=== PATIENT | female | born 1960 | race Caucasian/White ===

== ENCOUNTER 2017-06-11 21:53 | Inpatient (IN) | payer OTHER ==
[~2017-06-11] VITALS: Ht 152.4 cm; Wt 59.1 kg
[~2017-06-11 21:53] MED LIST: ATEN100T8 PO; CITA40TA12 PO; EYE OPB; LORA-741 PO; META1TAB22 PO; OXYC1TAB3 PO; ZINC1TAB PO
[2017-06-11] MEDS ORDERED: MoRPHine SULFATE 4 MG/ML 1 ML CARP\\VIAL IV STA (22:31)
[2017-06-11] MEDS ORDERED: ONDANSETRON INJ 2 MG/ML 2 ML VIAL IV STA (22:31)
[2017-06-11] MEDS ORDERED: DEXAMETHASONE **PF** INJ 10 MG/ML VIAL IV ONE (22:45)
[2017-06-11 22:52] LABS: BASO % 0.6 %; BASO ABS # 0.06 K/uL (0-0.2); EOS % 1.8 %; EOS ABS # 0.19 K/uL (0-0.5); HEMATOCRIT 37.4 % (37-47); HEMOGLOBIN 13.8 g/dL (12.0-16.0); IG# 0.03 K/uL (0.00-0.02); LYMPH % 36.6 %; LYMPH ABS # 3.86 K/uL (1.2-3.4); MEAN CELL VOLUME 89.3 fL (80-100); MEAN CORPUSCULAR HEMOGLOBIN 32.9 pg (25-34); MEAN CORPUSCULAR HGB CONC 36.9 g/dl (32-36); MEAN PLATELET VOLUME 9.2 fL (7.4-10.4); MONO % 10.5 %; MONO ABS # 1.11 K/uL (0.11-0.59); NEUT % 50.2 %; PLATELET COUNT 364 K/uL (130-400); WHITE BLOOD COUNT 10.55 K/uL (4.8-10.8)
[2017-06-11 23:09] LABS: CALCIUM 9.4 mg/dl (8.5-10.1); CREATININE 0.51 mg/dl (0.60-1.20); POTASSIUM 2.7 mmol/L (3.5-5.1)
[2017-06-11] MEDS ORDERED: KETOROLAC TROMETHAMINE 30 MG/ML VIAL IV STA (23:20)
[2017-06-11] MEDS ORDERED: LISI-461 PO (23:30)
[2017-06-11] MEDS ORDERED: TRAM-10 PO (23:31)
[2017-06-11] MEDS ORDERED: ATOR-22 PO (23:33)
[2017-06-11] MEDS ORDERED: AMLO-110 PO (23:33)
[2017-06-11] MEDS ORDERED: CYCL10TA6 PO (23:36)
[2017-06-11] MEDS ORDERED: PRED10TA PO (23:36)
[2017-06-11] MEDS ORDERED: GABA-113 PO (23:39)
[2017-06-11] MEDS ORDERED: POTASSIUM CHLORIDE 10 MEQ TABCR PO STA (23:40)
[2017-06-12] VITALS (7 sets, daily range): BP systolic 118–146; BP diastolic 60–80; PULSE 64–72; TEMP 36.4–36.9; O2SAT 97–100; Ht 152.4 cm; Wt 59.1 kg
--- NOTE | 2017-06-12 00:34 | EMERGENCY ROOM VISIT NOTE ---
History First contact with patient: 22:15 Chief Complaint: PAIN (GENERALIZED) Stated Complaint: SCIATICA PAIN History of Present Illness The patient is a 56 year old female who presents to the Emergency Room with complaints of severe low back pain that radiates down her left leg the past month described as aching, ranging in severity currently 9 out of 10 worse with movement and better with rest. Patient has seen multiple other providers. Patient saw her family care doctor, [place] and pain management. She had a MRI done the other day that showed degenerative disc disease. She was recommended to do physical therapy but cannot tolerate the pain. Her insurance will not approve pain management injections until she does physical therapy. Patient denies fever, chills, loss of bowel or bladder control, saddle anesthesia, chest pain, dyspnea, IV drug abuse, abdominal pain. She brought in the MRI results with her. Review of Systems An 10 system review of systems was completed with positives and pertinent negatives listed in the HPI. Past Medical/Surgical History Medical Problems: (1) Back pain Anxiety, hyperlipidemia, hypertension, neck pain Social History Smoking Status: Never Smoker Smokeless Tobacco Use: No Drug Use: none Occupation Status: employed Current/Historical Medications Scheduled Amlodipine (Norvasc), 5 MG PO QAM Atenolol/Chlorthalidone (Tenoretic 100 Mg/25 Mg), 1 TAB PO QAM Atorvastatin (Lipitor), 20 MG PO HS Citalopram Hydrobromide (Celexa), 40 MG PO QAM Cyclobenzaprine Hcl (Flexeril), 5 MG PO HS Gabapentin (Neurontin), 300 MG PO HS Lisinopril (Zestril), 10 MG PO DAILY Lorazepam (Ativan), 0.25 MG PO HS Metaxalone (Skelaxin), 800 MG PO BID Prednisone (Prednisone), 0 PO UD Tramadol (Ultram), 50 MG PO Q6 Physical Exam Vital Signs Date Time Temp Pulse Resp B/P (MAP) Pulse Ox O2 Delivery O2 Flow Rate FiO2 06/11/17 22:55 65 16 115/51 97 Room Air 06/11/17 21:56 36.7 70 20 128/69 99 Room Air Physical Exam VITALS: Vitals are noted on the nurse's note and reviewed by myself. Vital signs stable. GENERAL: Pleasant female who appears in pain, in no acute distress, nondiaphoretic, well-developed well-nourished. SKIN: Capillary reflex less than 2 seconds. HEENT: Normocephalic. PERRLA. EOMI. Nares patent. Mucous membranes moist. Neck is supple without nuchal rigidity. HEART: Regular rate and rhythm LUNGS: Clear to auscultation bilaterally without wheezes, rales or rhonchi. No retractions or accessory muscle use. ABDOMEN: Positive bowel sounds x 4. Normal tympanic percussion. Soft, nontender, without masses or organomegaly. Campos sign negative. No guarding or rebound tenderness. MUSCULOSKELETAL: No gross musculoskeletal defects. No pedal edema. No calf tenderness. No thoracic or lumbar tenderness on exam. Positive straight leg raise on the left. Patient can walk on toes but has severe pain. She can plantarflex and dorsiflex. NEURO: Patient was alert and oriented to person place and time. Normal sensation to light and sharp touch. Deep tendon reflexes 2+ patella bilaterally. No focal neurological deficits. Medical Decision & Procedures Laboratory Results 06/11/17 22:40 Red Blood Count 4.19, Mean Corpuscular Volume 89.3, Mean Corpuscular Hemoglobin 32.9, Mean Corpuscular Hemoglobin Concent 36.9, Mean Platelet Volume 9.2, Neutrophils (%) (Auto) 50.2, Lymphocytes (%) (Auto) 36.6, Monocytes (%) (Auto) 10.5, Eosinophils (%) (Auto) 1.8, Basophils (%) (Auto) 0.6, Neutrophils # (Auto ) 5.30, Lymphocytes # (Auto) 3.86, Monocytes # (Auto) 1.11, Eosinophils # (Auto ) 0.19, Basophils # (Auto) 0.06 06/11/17 22:40 Test 06/11/17 22:40 White Blood Count 10.55 K/uL (4.8-10.8) Red Blood Count 4.19 M/uL (4.2-5.4) Hemoglobin 13.8 g/dL (12.0-16.0) Hematocrit 37.4 % (37-47) Mean Corpuscular Volume 89.3 fL (80-100) Mean Corpuscular Hemoglobin 32.9 pg (25-34) Mean Corpuscular Hemoglobin Concent 36.9 g/dl (32-36) Platelet Count 364 K/uL (130-400) Mean Platelet Volume 9.2 fL (7.4-10.4) Neutrophils (%) (Auto) 50.2 % Lymphocytes (%) (Auto) 36.6 % Monocytes (%) (Auto) 10.5 % Eosinophils (%) (Auto) 1.8 % Basophils (%) (Auto) 0.6 % Neutrophils # (Auto) 5.30 K/uL (1.4-6.5) Lymphocytes # (Auto) 3.86 K/uL (1.2-3.4) Monocytes # (Auto) 1.11 K/uL (0.11-0.59) Eosinophils # (Auto) 0.19 K/uL (0-0.5) Basophils # (Auto) 0.06 K/uL (0-0.2) RDW Standard Deviation 42.0 fL (36.4-46.3) RDW Coefficient of Variation 13.0 % (11.5-14.5) Immature Granulocyte % (Auto) 0.3 % Immature Granulocyte # (Auto) 0.03 K/uL (0.00-0.02) Anion Gap 14.0 mmol/L (3-11) Est Creatinine Clear Calc Drug Dose 99.0 ml/min Estimated GFR () 124.6 Estimated GFR (Non- 107.5 BUN/Creatinine Ratio 17.8 (10-20) Calcium Level 9.4 mg/dl (8.5-10.1) Magnesium Level 1.9 mg/dl (1.8-2.4) Medications Administered Medications (Trade) Dose Ordered Sig/Nirav Route Start Time Stop Time Status Last Admin Dose Admin Morphine Sulfate (MoRPHine SULFATE INJ) 4 mg NOW STAT IV 06/11/17 22:31 06/11/17 22:32 DC 06/11/17 22:40 4 MG Dexamethasone Sodium Phosphate (Dexamethasone Inj Pf) 10 mg NOW ONCE IV 06/11/17 22:45 06/11/17 22:46 DC 06/11/17 22:39 10 MG Ondansetron HCl (Zofran Inj) 4 mg NOW STAT IV 06/11/17 22:31 06/11/17 22:32 DC 06/11/17 22:39 4 MG Ketorolac Tromethamine (Toradol Inj) 30 mg NOW STAT IV 06/11/17 23:20 2/11/18 23:21 DC 06/11/17 23:28 30 MG Potassium Chloride (Klor-Con M10) 40 meq NOW STAT PO 06/11/17 23:40 06/11/17 23:42 DC 06/11/17 23:55 40 MEQ ED Course Prior records/ancillary studies reviewed. Triage Nursing notes reviewed. Additional history obtained from family. The patient's history was concerning for back pain. Differential diagnosis: Etiologies such as musculoskeletal, disc herniation, fracture, aortic disease, metastatic disease, cord compression, discitis, infection, renal colic, gastrointestinal, acute exacerbation of chronic back pain, sciatica, cauda equina, as well as others were entertained. Physical findings: As above. No focal neurologic findings noted. ER treatment provided: Morphine, Decadron, Toradol, Zofran On reassessment the patient felt better. Diagnostics interpreted by me: The labs revealed hyponatremia and hypokalemia. Patient was given potassium Imaging studies: MRI was reviewed that the patient brought in and prior notes in the [email or web address] system were reviewed Consultation: A consultation was placed with [facility]. The case was discussed and diagnostics were reviewed. She will evaluate the patient for possible admission. This appears to be consistent with intractable back pain with low potassium and hyponatremia. Patient was still in severe amount of pain. She will be evaluated by medicine for possible admission. She was given potassium and multiple rounds of pain meds. She had no deficits on exam. She had an MRI done a few days ago.. The patient's physical examination and detailed history did not reveal any red flags for back pain such as those listed in the differential diagnosis. Therefore advanced diagnostics and consultations were felt to be unwarranted. By the evaluation outlined above emergent etiologies such as fracture, aortic disease, metastatic disease, infection, renal colic, gastrointestinal, cord compression, cauda equina, as well as others were deemed relatively unlikely. The pt informed about the findings as listed above. All questions were answered and pleased with the treatment. Case reviewed with my attending Medical Decision As above Medication Reconcilliation Current Medication List: was personally reviewed by me Blood Pressure Screening Patient's blood pressure: Normal blood pressure Impression Primary Impression: Sciatica Additional Impressions: Hypokalemia Hyponatremia Departure Information Dispostion Being Evaluated By Hospitalist Condition GOOD Referrals Tana Tovar (PCP) Patient Instructions [facility] Problem Qualifiers Primary Impression: Sciatica Laterality: left Qualified Codes: M54.32 - Sciatica, left side
[2017-06-12] MEDS ORDERED: ACETAMINOPHEN 325 MG TAB PO PRN (01:30)
[2017-06-12] MEDS ORDERED: POLYETHYLENE (MIRALAX) 17 GM PACK PO PRN (01:30)
[2017-06-12] MEDS ORDERED: ONDANSETRON INJ 2 MG/ML 2 ML VIAL IV PRN (01:30)
[2017-06-12] MEDS ORDERED: DIAZEPAM 2MG TAB PO ONE (01:32)
--- NOTE | 2017-06-12 01:41 | History and Physical ---
History & Physical Date & Time of Service: Jun 12, 2017 at 01:26 Chief Complaint: Back Pain Primary Care Physician: Tana Tovar History of Present Illness Source: patient, clinic records, hospital records 56 yo F with sciatica pain for one month presents to the ER with worsening of her pain. She reports seeing her PCP who sent her to PT, but the patient was unable to go because the pain was too bad. She has tried Flexeril, Skelaxin, Percocet and Tramadol with varying degrees of success but is still in pain. It is causing her to lose time away from work. She reports some pain in her piriformis area without any lower back pain. She has had some intermittent numbness in her lower L foot which is not present currently. She denies any B symptoms, such as weight loss, night sweats or other issues. She can lay flat but has to put a pillow under her legs for comfort. She denies any bowel or bladder loss of control. She has some difficulty ambulating but is able to stand and perform some range of motion testing such as touching her toes. She denies any new medications except for a prednisone taper which she has completed. She was referred to Pain Management as an outpatient and was told prior to that she would not be approved for injections. She has not tried any NSAIDs for this pain or discomfort. Past Medical/Surgical History Medical Problems: (1) Cervical stenosis of spinal canal Status: Chronic Surgical Problems: (1) H/O cervical spine surgery Status: Chronic (2) H/O tubal ligation Status: Chronic Social History Problems: (1) Smoker Status: Chronic Family History FH: CAD (coronary artery disease) FH: HTN (hypertension) FH: breast cancer Social History Smoking Status: Current Every Day Smoker Smokeless Tobacco Use: No Alcohol Use: socially Drug Use: none Occupational Status: employed Immunizations History of Influenza Vaccine: No History of Tetanus Vaccine?: No History of Pneumococcal: No History of Hepatitis B Vaccine: No Multi-Drug Resistant Organisms History of MDRO: No Allergies Coded Allergies: No Known Allergies (Unverified , 06/11/17) Home Medications Scheduled Amlodipine (Norvasc), 5 MG PO QAM Atenolol/Chlorthalidone (Tenoretic 100 Mg/25 Mg), 1 TAB PO QAM Atorvastatin (Lipitor), 20 MG PO HS Citalopram Hydrobromide (Celexa), 40 MG PO QAM Cyclobenzaprine Hcl (Flexeril), 5 MG PO HS Gabapentin (Neurontin), 300 MG PO HS Lisinopril (Zestril), 10 MG PO DAILY Lorazepam (Ativan), 0.25 MG PO HS Metaxalone (Skelaxin), 800 MG PO BID Prednisone (Prednisone), 0 PO UD Tramadol (Ultram), 50 MG PO Q6 Review of Systems At least ten systems were reviewed and negative except as indicated in HPI above. Physical Exam Vital Signs Date Time Temp Pulse Resp B/P (MAP) Pulse Ox O2 Delivery O2 Flow Rate FiO2 06/12/17 01:23 36.6 72 16 145/78 (100) 97 Room Air 06/12/17 00:52 70 18 97 Room Air 06/11/17 22:55 65 16 115/51 97 Room Air 06/11/17 21:56 36.7 70 20 128/69 99 Room Air General Appearance: WD/WN, + mild distress Head: normocephalic, atraumatic Eyes: PERRL, sclerae normal ENT: hearing grossly normal, pharynx normal Neck: trachea midline Respiratory/Chest: lungs clear, normal breath sounds, no respiratory distress, no accessory muscle use Cardiovascular: regular rate, rhythm, no edema, no gallop, no JVD, no murmur, normal peripheral pulses Back: normal inspection, no muscle spasm, + pertinent finding (restricted rotation of L spine to the left, ,otherwise normal ROM L-spine. No TTP of paraspinal or piriformis regions on L) Extremities/Musculoskelatal: normal inspection, normal range of motion Neurologic/Psych: content architect II-XII nml as tested, alert, normal mood/affect, normal reflexes, oriented x 3, + motor weakness (weakness with flexion/extension of knee, can perform toe raise without issue), + pertinent finding (neg SLR bilat) Skin: normal color, warm/dry Diagnostics Laboratory Results 06/11/17 22:40 Red Blood Count 4.19, Mean Corpuscular Volume 89.3, Mean Corpuscular Hemoglobin 32.9, Mean Corpuscular Hemoglobin Concent 36.9, Mean Platelet Volume 9.2, Neutrophils (%) (Auto) 50.2, Lymphocytes (%) (Auto) 36.6, Monocytes (%) (Auto) 10.5, Eosinophils (%) (Auto) 1.8, Basophils (%) (Auto) 0.6, Neutrophils # (Auto ) 5.30, Lymphocytes # (Auto) 3.86, Monocytes # (Auto) 1.11, Eosinophils # (Auto ) 0.19, Basophils # (Auto) 0.06 06/11/17 22:40 Test 06/11/17 22:40 06/12/17 01:18 White Blood Count 10.55 K/uL (4.8-10.8) Red Blood Count 4.19 M/uL (4.2-5.4) Hemoglobin 13.8 g/dL (12.0-16.0) Hematocrit 37.4 % (37-47) Mean Corpuscular Volume 89.3 fL (80-100) Mean Corpuscular Hemoglobin 32.9 pg (25-34) Mean Corpuscular Hemoglobin Concent 36.9 g/dl (32-36) Platelet Count 364 K/uL (130-400) Mean Platelet Volume 9.2 fL (7.4-10.4) Neutrophils (%) (Auto) 50.2 % Lymphocytes (%) (Auto) 36.6 % Monocytes (%) (Auto) 10.5 % Eosinophils (%) (Auto) 1.8 % Basophils (%) (Auto) 0.6 % Neutrophils # (Auto) 5.30 K/uL (1.4-6.5) Lymphocytes # (Auto) 3.86 K/uL (1.2-3.4) Monocytes # (Auto) 1.11 K/uL (0.11-0.59) Eosinophils # (Auto) 0.19 K/uL (0-0.5) Basophils # (Auto) 0.06 K/uL (0-0.2) RDW Standard Deviation 42.0 fL (36.4-46.3) RDW Coefficient of Variation 13.0 % (11.5-14.5) Immature Granulocyte % (Auto) 0.3 % Immature Granulocyte # (Auto) 0.03 K/uL (0.00-0.02) Anion Gap 14.0 mmol/L (3-11) Est Creatinine Clear Calc Drug Dose 99.0 ml/min Estimated GFR () 124.6 Estimated GFR (Non- 107.5 BUN/Creatinine Ratio 17.8 (10-20) Calcium Level 9.4 mg/dl (8.5-10.1) Magnesium Level 1.9 mg/dl (1.8-2.4) Results Past 24 Hours Test 06/11/17 22:40 06/12/17 01:18 Range/Units White Blood Count 10.55 4.8-10.8 K/uL Red Blood Count 4.19 4.2-5.4 M/uL Hemoglobin 13.8 12.0-16.0 g/dL Hematocrit 37.4 37-47 % Mean Corpuscular Volume 89.3 80-100 fL Mean Corpuscular Hemoglobin 32.9 25-34 pg Mean Corpuscular Hemoglobin Concent 36.9 32-36 g/dl Platelet Count 364 130-400 K/uL Mean Platelet Volume 9.2 7.4-10.4 fL Neutrophils (%) (Auto) 50.2 % Lymphocytes (%) (Auto) 36.6 % Monocytes (%) (Auto) 10.5 % Eosinophils (%) (Auto) 1.8 % Basophils (%) (Auto) 0.6 % Neutrophils # (Auto) 5.30 1.4-6.5 K/uL Lymphocytes # (Auto) 3.86 1.2-3.4 K/uL Monocytes # (Auto) 1.11 0.11-0.59 K/uL Eosinophils # (Auto) 0.19 0-0.5 K/uL Basophils # (Auto) 0.06 0-0.2 K/uL RDW Standard Deviation 42.0 36.4-46.3 fL RDW Coefficient of Variation 13.0 11.5-14.5 % Immature Granulocyte % (Auto) 0.3 % Immature Granulocyte # (Auto) 0.03 0.00-0.02 K/uL Sodium Level 128 136-145 mmol/L Potassium Level 2.7 3.5-5.1 mmol/L Chloride Level 91 98-107 mmol/L Carbon Dioxide Level 23 21-32 mmol/L Anion Gap 14.0 3-11 mmol/L Blood Urea Nitrogen 9 7-18 mg/dl Creatinine 0.51 0.60-1.20 mg/dl Est Creatinine Clear Calc Drug Dose 99.0 ml/min Estimated GFR () 124.6 Estimated GFR (Non- 107.5 BUN/Creatinine Ratio 17.8 10-20 Random Glucose 88 70-99 mg/dl Calcium Level 9.4 8.5-10.1 mg/dl Magnesium Level 1.9 1.8-2.4 mg/dl Impression Assessment and Plan 56 yo F with one month acute lower back pain with worsening in the last couple of days. 1. Sciatica-MRI this week reveals degenerative changes in L spine. Starting Ibuprofen 800mg PO TID with Valium 2mg PO TID to help with muscle relaxation and inflammation. Consulted Pain Management for assistance with long-term plan. PT/OT ordered. May need Case Management assistance with ins coverage prior to discharge. 2. Hyponatremia-hold diuretics at this time. Check serum and urine Osm. Tolerating PO and no vomiting or diarrhea. Give IVF and recheck frequently. 3. Hypokalemia-replace PO and hold diuretics at this time. 4. Smoking-Nicoderm DVT proph-Lovenox Full Code Dispo-to floor DO [facility]ist VTE Prophylaxis VTE Risk Assessment Done? Y/N: Yes Risk Level: Moderate Given or contraindicated: Enoxaparin (Lovenox)SQ
[2017-06-12] MEDS: NICOTINE 14 MG/24 HR TDSY TD SCH ×2 (01:45→08:59)
[2017-06-12] MEDS: SODIUM CHLORIDE 0.9% 1000ML 1,000 ML IV SCH ×2 (02:09→12:16)
[2017-06-12] MEDS: POTASSIUM CHLORIDE 20 MEQ TABCR PO SCH ×2 (02:09→08:57)
[2017-06-12] MEDS: TRAMADOL HCL 50 MG TAB PO SCH ×5 (04:00→21:44)
[2017-06-12 04:43] LABS: INR 0.9 (0.9-1.1)
[2017-06-12 04:55] LABS: CALCIUM 9.1 mg/dl (8.5-10.1); CREATININE 0.66 mg/dl (0.60-1.20); POTASSIUM 3.5 mmol/L (3.5-5.1)
[2017-06-12] MEDS ORDERED: TRAMADOL HCL 50 MG TAB PO SCH (06:00)
[2017-06-12] MEDS ORDERED: MoRPHine SULFATE 2 MG/ML CARP IV PRN (06:30)
[2017-06-12] MEDS: CITALOPRAM 40 MG TAB PO SCH (08:56)
[2017-06-12] MEDS: AMLODIPINE BESYLATE 5 MG TAB PO SCH (08:56)
[2017-06-12] MEDS: LISINOPRIL 10 MG TAB PO SCH (08:56)
[2017-06-12] MEDS: ENOXAPARIN 40 MG/0.4 ML SYR SQ SCH (08:57)
[2017-06-12] MEDS ORDERED: DIAZEPAM 2MG TAB PO SCH (09:00)
[2017-06-12] MEDS ORDERED: IBUPROFEN 800 MG TAB PO SCH (09:00)
[2017-06-12] MEDS ORDERED: CHLORTHALIDONE 25 MG TAB PO SCH (09:00)
--- NOTE | 2017-06-12 09:32 | Pain Management Consultation ---
Pain Management Consultation Date of Consultation Jun 12, 2017. Reason for Consultation Lumbar radiculopathy History This is a 56-year-old white female that has been seen at the [facility] for lumbar radiculopathy that has been ongoing for several months without any known injury. She describes a deep aching and spasming sensation along the left lumbosacral region that radiates down the left leg in an S1 distribution. Patient describes approximately 50% back pain and 50% radicular pain. Pain is aggravated with walking and weight bearing. She reports associated sleep disturbances. Pain is rated 7/10 currently. Pearl has spoken with [facility] in [place] for a possible injection. Due to insurance purposes before the injection, she was placed on a prednisone taper and ordered physical therapy. She states that the prednisone taper helped for 2 days. Physical therapy was supposed to start on Monday but her pain was worsened she was unable to go. Currently she is taking Tramadol, Morphine IV, and Valium. She feels like the tramadol is providing some relief. There is some left foot numbness. No bowel/bladder incontinence, foot drop, saddle anesthesia, leg weakness, or falls. Case discussed with Dr. Tana Ordonez Past Medical/Surgical History (1) H/O tubal ligation (2) H/O cervical spine surgery (3) Hypokalemia (4) Hyponatremia (5) Sciatica (6) Back pain Family History FH: CAD (coronary artery disease) FH: HTN (hypertension) FH: breast cancer Social / Work History Smokeless Tobacco Use: No Alcohol Use: socially Drug Use: none Marital Status: Housing Status: lives with family Occupation: employed Allergies Coded Allergies: No Known Allergies (Unverified , 06/11/17) Medications Current Inpatient Medications Medications (Trade) Dose Ordered Sig/Nirav Route Start Time Stop Time Status Last Admin Dose Admin Enoxaparin Sodium (Lovenox Inj) 40 mg DAILY SQ 06/12/17 09:00 07/12/17 08:59 Acetaminophen (Tylenol Tab) 650 mg Q4H PRN PO 06/12/17 01:30 07/12/17 01:29 06/12/17 02:18 650 MG Polyethylene (Miralax Powder Packet) 17 gm DAILY PRN PO 06/12/17 01:30 07/12/17 01:29 Ondansetron HCl (Zofran Inj) 4 mg Q6H PRN IV 06/12/17 01:30 07/12/17 01:29 Sodium Chloride 1,000 ml @ 100 mls/hr Q10H IV 06/12/17 02:00 06/12/17 21:59 06/12/17 02:09 100 MLS/HR Amlodipine Besylate (Norvasc Tab) 5 mg QAM PO 06/12/17 09:00 07/12/17 08:59 Atorvastatin Calcium (Lipitor Tab) 20 mg HS PO 06/12/17 21:00 07/12/17 20:59 Citalopram Hydrobromide (celeXA TAB) 40 mg QAM PO 06/12/17 09:00 07/12/17 08:59 Lisinopril (Zestril Tab) 10 mg DAILY PO 06/12/17 09:00 07/12/17 08:59 Lorazepam (Ativan Tab) 0.25 mg HS PO 06/12/17 21:00 07/12/17 20:59 Diazepam (Valium Tab) 2 mg TID PO 06/12/17 09:00 07/12/17 08:59 Ibuprofen (Motrin Tab) 800 mg TID PO 06/12/17 09:00 07/12/17 08:59 Nicotine (Nicoderm Cq 14MG Patch) 1 patch QAM TD 06/12/17 01:45 07/12/17 01:44 Miscellaneous (Remove Nicoderm Patch) 1 ea HS N/A 06/12/17 21:00 07/12/17 20:59 Atenolol (Tenormin Tab) 100 mg QAM PO 06/12/17 09:00 07/12/17 08:59 Tramadol HCl (Ultram Tab) 50 mg Q6H PO 06/12/17 04:00 07/12/17 03:59 06/12/17 04:41 50 MG Morphine Sulfate (MoRPHine SULFATE INJ) 2 mg Q4H PRN IV 06/12/17 06:30 06/26/17 06:29 Review of Systems Denies any constitutional, cardiac, pulmonary, neurological, GI, , extremity, endocrine, neuro, ENT, dermatological, or musculoskeletal complaints other than stated in HPI Physical Exam Height & Weight: Height 5 feet, 0.00 inches. Weight 59.090 (Kilograms) 130 (Pounds) Last Vital Signs Documentation Date Time Temp Pulse Resp B/P (MAP) Pulse Ox O2 Delivery O2 Flow Rate FiO2 06/12/17 08:54 100 Room Air 06/12/17 08:00 36.4 68 14 146/80 (102) Exam: GENERAL: Mrs. Bashir is a 56 y/o white female that appears her stated age. Speech and cognition is intact. Mood and affect is appropriate. Sitting quietly in the exam room, no acute distress. HEAD: Normocephalic; atraumatic. EYES: Pupils are round, equal, and reactive to light; EOM intact. CHEST: Regular chest respiration and excursion. EXTREMITIES: There is 5/5 strength of the bilateral lower extremities. Positive straight leg raise on the left, negative on the right. There are paresthesias along the left leg in an S1 distribution. No tenderness of the greater trochanteric bursa. BACK: Full ROM. No midline tenderness. No SI joint tenderness. There is exquisite tenderness along the left lumbosacral junction. No paravertebral, quadratus lumborum, gluteal, piriformis muscle spasm or mild trigger points noted. NEURO: CN II-XII grossly intact with no focal deficits noted. Patellar Reflex L +2 R +2 Achilles Reflex L +1 R +2 SKIN: No lesions, erythema, or rashes noted. Laboratory Laboratory Results (Last CBC): 06/11/17 22:40 Red Blood Count 4.19 L, Mean Corpuscular Volume 89.3, Mean Corpuscular Hemoglobin 32.9, Mean Corpuscular Hemoglobin Concent 36.9 H, Mean Platelet Volume 9.2, Neutrophils (%) (Auto) 50.2, Lymphocytes (%) (Auto) 36.6, Monocytes (%) (Auto) 10.5, Eosinophils (%) (Auto) 1.8, Basophils (%) (Auto) 0.6, Neutrophils # (Auto) 5.30, Lymphocytes # (Auto) 3.86 H, Monocytes # (Auto) 1.11 H, Eosinophils # (Auto) 0.19, Basophils # (Auto) 0.06 Imaging MRI Findings on the patient's chart Lumbar MRI shows mild disc bulge at L4-5 and moderate disc bulge at L5-S1 towards the left. [place] Drug Monitoring Program Search Results: patient reviewed within database (There are chronic Tramadol prescription refills. #[id number]. Same prescriber and pharmacy.) Assessment 1. Lumbar radiculitis - left sided Recommendations 1. Recommend physical therapy for the patient. 2. Will initiate the patient on Gabapentin 100mg TID for possible increased relief. 3. Continue current medication regimen. 4. She is set up with pain management in the outpatient setting. Will get the patient's symptoms better under control and she will follow up with pain management in [place] for interventional procedures.
[2017-06-12] MEDS: GABAPENTIN 100 MG CAP PO SCH ×3 (10:52→21:46)
[2017-06-12] MEDS: ACETAMINOPHEN 500 MG TAB PO SCH ×3 (10:53→21:47)
[2017-06-12] MEDS: LIDODERM (LIDOCAINE) PATCH 5% TD SCH (10:53)
[2017-06-12] MEDS ORDERED: LORAZEPAM 2 MG/ML 1 ML VIAL IV PRN (15:45)
[2017-06-12] MEDS ORDERED: BISACODYL 10 MG SUPP PR STA (15:53)
[2017-06-12] MEDS ORDERED: LORAZEPAM INJ 1 MG in SYRINGE 0.5 ML IV PRN (16:00)
--- NOTE | 2017-06-12 18:48 | Progress Note ---
Subjective Date of Service: Jun 12, 2017. Subjective Patient continues with persistent intermittent radicular left leg pain worse in the past not associated with any bowel or bladder dysfunction not really relieved any of the manipulations we've attempted at this point in time Problem List Medical Problems: (1) Hypokalemia Status: Acute (2) Hyponatremia Status: Acute (3) Sciatica Status: Acute Review of Systems Constitutional: No fever, No chills, No weakness, No fatigue Respiratory: No cough, No shortness of breath, No dyspnea on exertion Cardiac: No chest pain, No PND, No edema Abdomen: No pain, No nausea, No vomiting, No diarrhea Musculoskeletal: + joint pain, + muscle pain, No swelling, No calf pain Psychiatric: No depression symptoms, No anhedonism, No anxiety Objective Vital Signs Date Time Temp Pulse Resp B/P (MAP) Pulse Ox O2 Delivery O2 Flow Rate FiO2 06/12/17 15:33 36.9 70 18 124/60 (81) 98 Room Air 06/12/17 08:54 100 Room Air 06/12/17 08:00 36.4 68 14 146/80 (102) 100 Room Air 06/12/17 07:50 97 Room Air 06/12/17 01:23 36.6 72 16 145/78 (100) 97 Room Air 06/12/17 01:15 36.6 72 16 145/78 Room Air 06/12/17 01:15 Room Air 06/12/17 00:52 70 18 97 Room Air 06/11/17 22:55 65 16 115/51 97 Room Air 06/11/17 21:56 36.7 70 20 128/69 99 Room Air Physical Exam General Appearance: WD/WN, + moderate distress Eyes: normal inspection, sclerae normal Respiratory/Chest: chest non-tender, lungs clear, normal breath sounds Cardiovascular: regular rate, rhythm, no murmur Abdomen: normal bowel sounds, non tender, soft Extremities: normal inspection, no pedal edema, no calf tenderness, + pertinent finding (reflexes intact) Neurologic/Psychiatric: alert, oriented x 3 Laboratory Results Last 24 Hours Test 06/11/17 22:40 06/12/17 04:11 06/12/17 08:05 06/12/17 15:25 White Blood Count 10.55 K/uL Red Blood Count 4.19 M/uL Hemoglobin 13.8 g/dL Hematocrit 37.4 % Mean Corpuscular Volume 89.3 fL Mean Corpuscular Hemoglobin 32.9 pg Mean Corpuscular Hemoglobin Concent 36.9 g/dl Platelet Count 364 K/uL Mean Platelet Volume 9.2 fL Neutrophils (%) (Auto) 50.2 % Lymphocytes (%) (Auto) 36.6 % Monocytes (%) (Auto) 10.5 % Eosinophils (%) (Auto) 1.8 % Basophils (%) (Auto) 0.6 % Neutrophils # (Auto) 5.30 K/uL Lymphocytes # (Auto) 3.86 K/uL Monocytes # (Auto) 1.11 K/uL Eosinophils # (Auto) 0.19 K/uL Basophils # (Auto) 0.06 K/uL RDW Standard Deviation 42.0 fL RDW Coefficient of Variation 13.0 % Immature Granulocyte % (Auto) 0.3 % Immature Granulocyte # (Auto) 0.03 K/uL Sodium Level 128 mmol/L 128 mmol/L Potassium Level 2.7 mmol/L 3.5 mmol/L Chloride Level 91 mmol/L 94 mmol/L Carbon Dioxide Level 23 mmol/L 26 mmol/L Anion Gap 14.0 mmol/L 8.0 mmol/L Blood Urea Nitrogen 9 mg/dl 12 mg/dl Creatinine 0.51 mg/dl 0.66 mg/dl Est Creatinine Clear Calc Drug Dose 99.0 ml/min 76.5 ml/min Estimated GFR () 124.6 114.5 Estimated GFR (Non- 107.5 98.8 BUN/Creatinine Ratio 17.8 18.3 Random Glucose 88 mg/dl 144 mg/dl Calcium Level 9.4 mg/dl 9.1 mg/dl Magnesium Level 1.9 mg/dl Prothrombin Time 9.8 SECONDS Prothromb Time International Ratio 0.9 Osmolality 270 mOsm/kg Urine Color YELLOW Urine Appearance CLEAR Urine pH 7.0 Urine Specific Rodman 1.005 Urine Protein NEG Urine Glucose (UA) NEG Urine Ketones NEG Urine Occult Blood NEG Urine Nitrite NEG Urine Bilirubin NEG Urine Urobilinogen NEG Urine Leukocyte Esterase NEG Urine Osmolality 257 mOms/kg Urine Random Sodium 15 mEq/L Assessment and Plan Acute sciatica and the patient with known degenerative disc disease of her back For the sciatica we are now attempting adding Neurontin scheduled Tylenol Celebrex when necessary Ativan for muscle relaxation and dexamethasone Hyponatremia persists will employ a fluid restriction her random urine sodium however was not significantly elevated her hypokalemia has been repleted Hypertension is acceptable continuing lisinopril atenolol and Norvasc plus atorvastatin for secondary risk reduction from dyslipidemia Tobacco abuse will employ smoking cessation counseling and NicoDerm DVT prevention be early ambulation
[2017-06-12] MEDS ORDERED: ATORVASTATIN 20 MG TAB PO SCH (21:00)
[2017-06-12] MEDS ORDERED: LORAZEPAM 0.5 MG TAB PO SCH (21:00)
[2017-06-12] MEDS: DEXAMETHASONE 1 MG TAB PO SCH (21:45)
[2017-06-12] MEDS: CeleBREX 100 MG CAP PO SCH (21:45)
[2017-06-12] MEDS: POLYETHYLENE (MIRALAX) 17 GM PACK PO SCH (21:51)
[2017-06-12] MEDS: OXYCODONE HCL IR 5 MG TAB (IMMEDIATE RELEASE) PO PRN (23:16)
[2017-06-13] MEDS: TRAMADOL HCL 50 MG TAB PO SCH ×3 (03:46→15:42)
[2017-06-13] MEDS: ACETAMINOPHEN 500 MG TAB PO SCH ×2 (05:32→13:45)
[2017-06-13 06:00] LABS: HEMATOCRIT 32.8 % (37-47); HEMOGLOBIN 11.6 g/dL (12.0-16.0); MEAN CELL VOLUME 91.4 fL (80-100); MEAN CORPUSCULAR HEMOGLOBIN 32.3 pg (25-34); MEAN CORPUSCULAR HGB CONC 35.4 g/dl (32-36); PLATELET COUNT 291 K/uL (130-400); RED CELL DISTRIBUTION WIDTH CV 13.2 % (11.5-14.5); WHITE BLOOD COUNT 11.28 K/uL (4.8-10.8)
[2017-06-13 06:28] LABS: CALCIUM 8.7 mg/dl (8.5-10.1); CREATININE 0.54 mg/dl (0.60-1.20)
[2017-06-13] MEDS: OXYCODONE HCL IR 5 MG TAB (IMMEDIATE RELEASE) PO PRN (07:12)
[2017-06-13 07:29] VITALS: BP 148/82; PULSE 63; TEMP 36.6; O2SAT 97
[2017-06-13 07:42] LABS: POTASSIUM 3.8 mmol/L (3.5-5.1)
[2017-06-13] MEDS: POLYETHYLENE (MIRALAX) 17 GM PACK PO SCH (09:05)
[2017-06-13] MEDS: DEXAMETHASONE 1 MG TAB PO SCH (09:05)
[2017-06-13] MEDS: LISINOPRIL 10 MG TAB PO SCH (09:06)
[2017-06-13] MEDS: LIDODERM (LIDOCAINE) PATCH 5% TD SCH (09:06)
[2017-06-13] MEDS: AMLODIPINE BESYLATE 5 MG TAB PO SCH (09:07)
[2017-06-13] MEDS: CeleBREX 100 MG CAP PO SCH (09:07)
[2017-06-13] MEDS: CITALOPRAM 40 MG TAB PO SCH (09:08)
[2017-06-13] MEDS: GABAPENTIN 100 MG CAP PO SCH ×2 (09:08→13:44)
[2017-06-13] MEDS: NICOTINE 14 MG/24 HR TDSY TD SCH (09:08)
[2017-06-13] MEDS: ENOXAPARIN 40 MG/0.4 ML SYR SQ SCH (09:09)
[2017-06-13 15:13] VITALS: BP 139/72; PULSE 62; TEMP 37.1; O2SAT 99
[2017-06-13] MEDS ORDERED: RXC5 PO (16:33)
[2017-06-13] MEDS ORDERED: DXM1 PO (16:33)
[2017-06-13] MEDS ORDERED: ACET-24 PO (16:33)
[2017-06-13] MEDS ORDERED: LDDP5 TD (16:33)
[2017-06-13] MEDS ORDERED: CLB100 PO (16:33)
--- NOTE | 2017-06-13 16:36 | Discharge Instructions ---
Discharge Instructions Date of Service Jun 13, 2017. Admission Reason for Admission: Back Pain Discharge Discharge Diagnosis / Problem: INTRACTABLE BACK PAIN Discharge Goals Goal(s): Diagnostic testing, Therapeutic intervention Activity Recommendations Activity Limitations: as noted below Lifting Limitations: gradually increase as tolerated NO LIFTING OR PROLONGED STANDING TEMPTING IT IS, PLEASE TRY TO STICK TO THE RECIPE OF MEDICINES THAT WE ARE USING AT THIS TIME AND OMIT THE ONES NOTED ON THE MED SHEET ABOVE, THE CURRENT REGIME IS WORKING SO LETS STICK WITH IT IF THE PAIN PATCHES ARE NOT AFFORDABLE ON YOUR INSURANCE THEY MAKE A SIMILAR OVER THE COUNTER VERSION THAT IS ONLY SLIGHTLY LESS POTENT PLEASE CONSIDER STOPPING SMOKING . Current Hospital Diet Patient's current hospital diet: Regular Diet Discharge Diet Recommended Diet: Regular Diet Pending Studies Studies pending at discharge: no Medical Emergencies . Who to Call and When: Medical Emergencies: If at any time you feel your situation is an emergency, please call 911 immediately. . Non-Emergent Contact Non-Emergency issues call your: Primary Care Provider Call Non-Emergent contact if: temperature is above 101, your pain is unusual for you . . "Provider Documentation" section prepared by Javier Momin. . VTE Core Measure Inpt VTE Proph given/why not?: Enoxaparin (Lovenox)SQ
[2017-06-13 16:50] VITALS: BP 139/72; PULSE 62; TEMP 37.1; O2SAT 99
--- NOTE | 2017-06-13 18:45 | Discharge Summary ---
Discharge Summary Date of Service Jun 13, 2017. Discharge Summary Admission Date: Jun 12, 2017 at 00:18 Discharge Date: Jun 13, 2017 Discharge Disposition: Home Principal Diagnosis: intractable back pain Immunizations: Have You Had Influenza Vaccine: No History of Tetanus Vaccine?: No History of Pneumococcal: No History of Hepatitis B Vaccine: No Medication Reconciliation New Medications: Acetaminophen (Sb Non-Aspirin Extra Stre) 500 Mg Tab 1000 MG PO Q8, #90 TAB Celecoxib (Celebrex) 100 Mg Cap 100 MG PO BID, #60 CAP Dexamethasone (Dexamethasone) 1 Mg Tab 2 MG PO UD, #50 TAB 2 twice A DAY FOR ONE WEEK THEN 1 TWICE A DAY FOR ONE WEEK THEN 1 A DAY Lidocaine (Lidocaine) 1 Patch Tdsy 1 PATCH TD QAM, #10 PATCH IF THIS IS NOT COVERED BY INSURANCE, INFORM PATIENT OF THE 4% OTC VERSION AVIALABLE Oxycodone HCl (Oxycodone HCl) 5 Mg Tab 10 MG PO Q6 PRN for Pain, #44 TAB if no relief in 60 minutes may take a additional dose, but no more than one additional dose a day Continued Medications: Amlodipine (Norvasc) 5 Mg Tab 5 MG PO QAM, TAB Atenolol/Chlorthalidone (Tenoretic 100 Mg/25 Mg) 100 Mg/25 Mg Tab 1 TAB PO QAM Atorvastatin (Lipitor) 20 Mg Tab 20 MG PO HS, TAB Citalopram Hydrobromide (Celexa) 40 Mg Tab 40 MG PO QAM Gabapentin (Neurontin) 300 Mg Cap 300 MG PO HS, CAP Lisinopril (Zestril) 10 Mg Tab 10 MG PO DAILY, TAB Lorazepam (Ativan) 0.5 Mg Tab 0.25 MG PO HS Tramadol (Ultram) 50 Mg Tab 50 MG PO Q6 Discontinued Medications: Cyclobenzaprine Hcl (Flexeril) 10 Mg Tab 5 MG PO HS Metaxalone (Skelaxin) 800 Mg Tab 800 MG PO BID am & noon Prednisone (Prednisone) 10 Mg Tab 0 PO UD tapering dose Discharge Exam Review of Systems: Constitutional: No fever, No chills, No weakness, No fatigue Respiratory: No cough, No sputum, No shortness of breath Cardiovascular: No chest pain, No orthopnea, No edema Abdomen: No pain, No nausea Musculoskeletal: + joint pain, + muscle pain Physical Exam: General Appearance: WD/WN, + mild distress Eyes: normal inspection, sclerae normal Respiratory/Chest: chest non-tender, lungs clear, normal breath sounds Cardiovascular: regular rate, rhythm, no murmur Abdomen / GI: normal bowel sounds, non tender, soft Extremities: no pedal edema, normal range of motion Neurologic/Psychiatric: alert, oriented x 3 Hospital Course Acute sciatica and the patient with known degenerative disc disease of her back For the sciatica has had great improvement with scheduled Tylenol Celebrex and dexamethasone, she will have back up oxycodone and continue to follow up with outpt pain physician and PT Hyponatremia has improved Hypertension is acceptable continuing lisinopril atenolol and Norvasc plus atorvastatin for secondary risk reduction from dyslipidemia Tobacco abuse will employ smoking cessation counseling and she may consider outpt otc patches Total Time Spent: Greater than 30 minutes This includes examination of the patient, discharge planning, medication reconciliation, and communication with other providers. Discharge Instructions Please refer to the electronic Patient Visit Report (Discharge Instructions) for additional information.
== END 2017-06-13 17:21 | disposition home or self-care (01) | DRG 552 ==
LOC: C.EDB 21:55 → C.MSW 06-12 00:18 → ENRESERV 06-12 00:45
PROVIDERS: ADMIT Hospitalist; ATTEND Internal Medicine
DX: M51.17 Intervertebral disc disorders with radiculopathy, lumbosacral region (principal); E87.1 Hypo-osmolality and hyponatremia; E87.6 Hypokalemia; I10 Essential (primary) hypertension; F17.200 Nicotine dependence, unspecified, uncomplicated; Z79.52 Long term (current) use of systemic steroids; Z79.891 Long term (current) use of opiate analgesic; Z79.899 Other long term (current) drug therapy

== ENCOUNTER 2017-06-27 00:45 | Emergency (ER) | payer OTHER ==
[~2017-06-27] VITALS: Ht 152.4 cm; Wt 59.0 kg
[~2017-06-27 00:45] MED LIST changes: +ACET-24 PO; +AMLO-110 PO; +ATOR-22 PO; +CLB100 PO; +DXM1 PO; -EYE OPB; +GABA-113 PO; +LDDP5 TD; +LISI-461 PO; -META1TAB22 PO; -OXYC1TAB3 PO; +RXC5 PO; +TRAM-10 PO; -ZINC1TAB PO
[2017-06-27 00:49] VITALS: TEMP 36.7; Ht 152.4 cm; Wt 59.0 kg
[2017-06-27] MEDS ORDERED: ACET-1256 PO (01:25)
[2017-06-27] MEDS ORDERED: CLB/200 PO (01:27)
[2017-06-27] MEDS ORDERED: DXM/4 PO (01:31)
[2017-06-27] MEDS ORDERED: lidocaine patch TD (01:35)
[2017-06-27] MEDS ORDERED: OXYC1CAP5 PO (01:37)
[2017-06-27] MEDS ORDERED: KETOROLAC TROMETHAMINE 30 MG/ML VIAL IV STA (01:56)
--- NOTE | 2017-06-27 02:31 | EMERGENCY ROOM VISIT NOTE ---
History Report prepared by Mark: Sukumar Murry Under the Supervision of: Dr. Silvia Galan D.O. First contact with patient: 01:24 Chief Complaint: BACK PAIN Stated Complaint: SCIATICA PAIN History of Present Illness The patient is a 56 year old female who presents to the Emergency Room with complaints of worsening back pain for the past two weeks. The patient states that she describes the pain as a sciatic pain. The patient states that she has been sent to a doctor, and they could not give her a steroid injection because then she would have to have physical therapy for 6 weeks. However, she was put on a prednisone taper, and she states that as it tapers the pain gets worse, and it is finishing the next couple of days. The patient states that she was admitted for a night in the hospital for intractable back pain, though it has gotten worse since then. She states that afterwards she felt good, though she has been feeling worse since then. She states that she had an MRI done at [facility], and it found that she had mild bulging in the L4-L5 and moderate bulging of L5-S1. She notes that she has had multiple ER visits recently for pain control here and at [facility]. The patient states that when she was released she started to go to work though she did not go today, and she went to physical therapy last week, though she states that her pain was worse after that even though it was minimal movement. The patient notes that she used to be taking tramadol 2-3 times per day, though she has been tapering this off leading to more pain. Tonight she states that she took oxycodone, tramadol, and she drank alcohol around 0700. The patient denies any abdominal pain. She states that she has been having pain down the back of her left leg, and she states that both of her feet are cold. The patient states that she has been taking Colace. She also states that she has been intermittently taking gabapentin, though she does not always take it because it makes her feel weird, though she notes that it does not always make her feel this way. Source of History: patient Onset: two weeks Position: back Quality: other (sciatic pain) Timing: worsening Associated Symptoms: No abdominal pain Note: Associated symptoms: leg pain Review of Systems See HPI for pertinent positives & negatives. A total of 10 systems reviewed and were otherwise negative. Past Medical & Surgical Medical Problems: (1) Back pain (2) Cervical stenosis of spinal canal Surgical Problems: (1) H/O cervical spine surgery (2) H/O tubal ligation Social History Problems: (1) Smoker Family History FH: CAD (coronary artery disease) FH: HTN (hypertension) FH: breast cancer Social History Smoking Status: Current Every Day Smoker Drug Use: none Marital Status: Occupation Status: employed Current/Historical Medications Scheduled Acetaminophen (Tylenol), 1,000 MG PO Q8 Amlodipine (Norvasc), 5 MG PO QAM Atenolol/Chlorthalidone (Tenoretic 100 Mg/25 Mg), 1 TAB PO QAM Atorvastatin (Lipitor), 20 MG PO HS Celecoxib (CeleBREX), 100 MG PO BID Citalopram Hydrobromide (Celexa), 40 MG PO QAM Dexamethasone (Decadron), 2 MG PO DAILY Gabapentin (Neurontin), 300 MG PO HS Lisinopril (Zestril), 10 MG PO DAILY Lorazepam (Ativan), 0.25 MG PO HS Tramadol (Ultram), 50 MG PO Q6 [lidocaine patch], 1 PATCH TD QAM Scheduled PRN Oxycodone Hcl (Oxycodone Hcl), 5 MG PO Q6 PRN for Pain Allergies Coded Allergies: No Known Allergies (Unverified , 06/27/17) Physical Exam Vital Signs Date Time Temp Pulse Resp B/P (MAP) Pulse Ox O2 Delivery O2 Flow Rate FiO2 06/27/17 03:01 124/66 06/27/17 02:54 64 21 94 06/27/17 02:49 110/59 06/27/17 02:36 65 18 98 Room Air 06/27/17 02:31 90/69 06/27/17 02:21 62 19 97 06/27/17 02:06 64 17 97 06/27/17 02:01 109/64 06/27/17 02:00 65 13 98 06/27/17 01:45 64 12 99 06/27/17 01:31 109/68 06/27/17 01:30 62 15 95 06/27/17 01:15 64 17 97 Room Air 06/27/17 01:14 63 06/27/17 01:10 101/72 06/27/17 00:49 36.7 70 16 126/62 98 Room Air Physical Exam General: Appears uncomfortable and smells of alcohol. HEENT: Head - normocephalic and atraumatic Pupils are equal, round, and reactive to light. Extraocular eye muscles are intact, and sclera are anicteric. Nose - moist nasal mucosa without discharge. Mouth - moist buccal mucosa. Oropharynx is nonerythematous and there is no tonsillar exudate or edema noted. Neck: Supple; no JVD, nuchal rigidity, cervical lymphadenopathy. Heart: Regular rate and rhythm. There is a normal S1 and S2 with no murmurs, clicks, or gallops appreciated. Lungs: Clear to auscultation bilaterally with no wheezes, rales, or rhonchi. Abdomen: Soft, completely nontender, nondistended, with good bowel sounds. There are no palpable pulsatile masses or hepatosplenomegaly. There is no guarding, rigidity, or rebound noted. Back: Pain with palpation over the left buttocks and posterior thigh. Extremities: No evidence of cyanosis, clubbing, or edema. There are easily palpable peripheral pulses. Skin: warm and dry with good turgor and no rashes. Medical Decision & Procedures Medications Administered Medications (Trade) Dose Ordered Sig/Nirav Route Start Time Stop Time Status Last Admin Dose Admin Ketorolac Tromethamine (Toradol Inj) 30 mg NOW STAT IV 06/27/17 01:56 06/27/17 01:57 DC 06/27/17 02:05 30 MG Procedure Given: Toradol IV ED Course 0143: Past medical records reviewed. The patient was evaluated in room B8. A complete history and physical exam was performed. An IV lock was initiated. 0156: Toradol 30mg IV 0251: Upon reevaluation, the patient is totally comfortable and pain free. She verbalized agreement of the treatment plan. She was discharged home. Medical Decision The patient is a 56 year old female who presents to the ED with back pain. Differential diagnosis includes exacerbation of sciatica, spinal stenosis, and disc herniation. This is a 56-year-old female patient with a history of sciatica who presents to the emergency department with recurrent pain. The patient had an MRI previously which showed some bulging disks as described above. She had to be hospitalized 2 weeks ago for intractable sciatic pain. Her neurologist has been attempting to get her follow-up with a pain specialist for possible steroid injection at the site of the sciatic nerve. This is been unsuccessful. I recommended that she have close follow-up with her PCP who can manage her outpatient medications and referrals. She is in the process of switching to a new PCP-Dr. Zimmerman. I suggested that they contact their office to see if there appointment could be moved up earlier than August. In the meantime, the patient can continue to use tramadol. Once she completes her steroid taper, she can start to use some NSAIDs on a full stomach. I strongly discouraged patient from using alcohol in conjunction with tramadol, NSAIDs, or opioids. Medication Reconcilliation Current Medication List: was personally reviewed by me Blood Pressure Screening Patient's blood pressure: Normal blood pressure Impression Primary Impression: Sciatica Scribe Attestation The scribe's documentation has been prepared under my direction and personally reviewed by me in its entirety. I confirm that the note above accurately reflects all work, treatment, procedures, and medical decision making performed by me. Departure Information Dispostion Home / Self-Care Referrals Tana Tovar (PCP) Forms HOME CARE DOCUMENTATION FORM, IMPORTANT VISIT INFORMATION Patient Instructions ED Sciatica, My [facility] Additional Instructions Rest. Take tramadol as directed. Finish steroid taper. Avoid alcohol when taking oxycodone, tramadol or NSAIDs Follow up with PCP for referral to pain management Problem Qualifiers Primary Impression: Sciatica Laterality: left Qualified Codes: M54.32 - Sciatica, left side
[2017-06-27 02:54] VITALS: PULSE 64; O2SAT 94
[2017-06-27 03:01] VITALS: BP 124/66
== END 2017-06-27 03:09 | disposition home or self-care (01) ==
LOC: C.EDB 00:46
DX: M54.32 Sciatica, left side (principal); M51.27 Other intervertebral disc displacement, lumbosacral region; M48.02 Spinal stenosis, cervical region; F17.200 Nicotine dependence, unspecified, uncomplicated; Z79.891 Long term (current) use of opiate analgesic; Z82.49 Family history of ischemic heart disease and other diseases of the circulatory system; Z83.3 Family history of diabetes mellitus

== ENCOUNTER → 2017-08-08 | Outpatient (CLI) | payer OTHER ==
[~2017-08-08] MED LIST changes: +ACET-1256 PO; -ACET-24 PO; -CLB100 PO; -DXM1 PO; -GABA-113 PO; -LDDP5 TD; +ROPI0.5T15 PO; -RXC5 PO
[2017-08-08 18:00] LABS: POTASSIUM 3.5 mmol/L (3.5-5.1)
== END | disposition home or self-care (01) ==
LOC: C.LABMFLN 14:02
PROVIDERS: ATTEND Physician Assistant
DX: R25.2 Cramp and spasm (principal); R53.83 Other fatigue